=== PATIENT | male | born 1950 | race Caucasian/White ===

== ENCOUNTER 2019-12-03 16:47 | Emergency (ER) | payer OTHER, SELFPAY ==
--- NOTE | ~2019-12-03 | XR_ITS ---
EXAMINATION: [id number] DATE: 12/03/2019 17:34 INDICATION: Lateral lower left rib pain post fall. Cough. TECHNIQUE: PA view of the chest and 4 views of the left ribs were obtained. COMPARISON: Chest radiograph dated 04/29/2019 FINDINGS: Irregular cortical contour at the anterior left fifth rib which could represent an age-indeterminate fracture. No other lesions suspicious for left rib fracture identified. Old healed right posterior fi fth through anterior 10th rib fractures. No airspace opacities, pleural effusion, pulmonary edema or pneumothorax. Gas within a small to moderate-sized hiatal hernia posterior to the heart. Cardiomedias tinal silhouette is within normal limits for AP technique. Age-indeterminate T7 and likely T6 raquel javier fractures with mild anterior vertebral body height loss. IMPRESSION: 1. Possible age-indeterminate nondisplaced anterior left fifth rib fracture. 2. No acute cardiopulmonary disease. 3. Age-indeterminate T7 and likely T6 compression fractures. 4. Small to moderate-sized hiatal hernia. Reviewed, dictated and finalized at location A. [facility] [employer]
[2019-12-03 16:45] VITALS: BP 132/99; PULSE 110; RESP 18; TEMP 37.1; O2SAT 92
--- NOTE | 2019-12-03 16:51 | ED.FALL ---
HPI - Fall General Chief Complaint: Fall Stated Complaint: FALL/L RIB PAIN Time Seen by Provider: 12/03/19 16:50 Source: patient, EMS and RN notes reviewed Mode of arrival: EMS Limitations: no limitations History of Present Illness HPI Narrative: A 69 y/o male presents to the ED via EMS after having a ground level fall roughly 45 minutes ago. He states that he has been drinking some and was walking out of his front door when he tripped over his shoes and fell onto his lt side. He reports immediate 8/10 lt rib pain that is aggravated with movement or palpation. He notes that he was unable to get up so his called EMS to have him brought here. He also notes that he hit his head but denies any HALL or LOC. He also denies any SOB, CP, neck pain, back pain, ABD pain, N/V/D, and any other medical complaints at this time. complaint: fall Onset (ago): minute(s) (45) Fall from: standing Fall witnessed: yes, by family Place fall occurred: home Loss of consciousness: none Symptoms prior to fall: none Context: tripped/slipped Location of injury: other (lt ribs) Severity scale (1-10): 8 Associated symptoms (after fall): denies Related Data Allergies Allergy/AdvReac Type Severity Reaction Status Date / Time No Known Allergies Allergy Verified 12/03/19 16:54 Review of Systems Review of Systems: All systems reviewed & are unremarkable except as noted in HPI and below Constitutional: Constitutional: Denies chills, Denies fever(s), Denies headache(s) and Denies weakness Eyes: Eyes: Denies blurry vision ENT: Denies headache(s) and Denies neck pain Cardiovascular: Cardiovascular: Denies chest pain and Denies dyspnea Respiratory: Respiratory: Denies cough and Denies dyspnea Gastrointestinal: Gastrointestinal: Denies abdominal pain, Denies diarrhea, Denies nausea and Denies vomiting Genitourinary: Genitourinary: Denies hematuria and Denies dysuria Musculoskeletal: Musculoskeletal: Denies back pain, Denies neck pain and Reports other (lt rib pain) Neurologic: Denies headache(s), Denies weakness and Denies other (LOC) [facility] Past Medical History Medical History (Updated 12/03/19 @ 20:13 by Kayla Eid MD) Anemia Cataracts, bilateral COPD (chronic obstructive pulmonary disease) History of pneumonia History of rectal polyps Hx of fracture of rib Schizophrenia Surgical History Surgical History (Updated 12/03/19 @ 17:20 by Brice Booth) History of bilateral knee replacement Social History Social History (Updated 12/03/19 @ 17:20 by Brice Booth) Smoking packs per day: 1 Smoking cigarettes per day: 20.0 Smoking status: Current every day smoker Second hand tobacco smoke exposure: Yes Alcohol intake: current Exam Const: General: no acute distress and well developed Orientation/consciousness: oriented to person, oriented to place, oriented to time and patient oriented x3 HENMT: Head: normocephalic Ears: external ears normal General nose exam: Normal external nose present Eyes: General: appearance normal, both eyes and all related structures Conjunctivae: conjunctivae normal Neck: Neck: normal visual inspection and full ROM Chest: Chest palpation & inspection: tenderness (lt) Resp: Effort & Inspection: normal respiratory effort Auscultation: clear to auscultation bilaterally Cardio: Rate: regular rate Rhythm: regular rhythm GI: GI Palp: No abdominal tenderness and Yes Soft to palpation Skin: General skin exam: normal color and turgor normal Neuro: General: oriented to person, oriented to place, oriented to time and patient oriented x3 Cognition (Neuro): normal cognition Extrem: General: normal to inspection, full ROM and no pedal edema Psych: Appearance: grossly normal Mental Status: mental status grossly normal Affect: normal affect Course Vital Signs Vital signs: Vital Signs Temperature 37.1 C 12/03/19 16:45 Pulse Rate 110 H 12/03/19 16:45 Respiratory Rate 18 12/03/19 16:4
--- NOTE | 2019-12-03 19:42 | PC.NURSE ---
Patient used call light to ask to speak with nurse. Patient requesting pain medication. Dr Eid notified, no further orders.
[2019-12-03] MEDS: ACETAMINOPHEN 325 MG TABLET 650 MG PO (19:55)
[2019-12-03 20:25] VITALS: BP 141/89; PULSE 98; RESP 18; O2SAT 95
== END 2019-12-03 20:26 | disposition home or self-care (01) ==
PROVIDERS: Emergency Provider Emergency Medicine
DX: S20.212A Contusion of left front wall of thorax, initial encounter (principal); Z86.2 Personal history of diseases of the blood and blood-forming organs and certain disorders involving the immune mechanism; H26.9 Unspecified cataract; Z96.653 Presence of artificial knee joint, bilateral; F17.210 Nicotine dependence, cigarettes, uncomplicated; W18.09XA Striking against other object with subsequent fall, initial encounter
CPT/HCPCS: 71101; 99283; A9270